=== PATIENT | female | born 1975 | race Hispanic/Latino ===

== ENCOUNTER 2017-02-02 18:48 | Emergency (ER) | payer BC ==
[2017-02-02 19:01] VITALS: TEMP 98.1
--- NOTE | 2017-02-02 20:14 | C.PDOC ---
History Of Present Illness A 41 y/o M c/o pain and swelling to the right inner thigh for 3 day. Pain is worse now, which prompted her visit today. Patient has a phx of similar symptoms at other sites. Denies fever, chills, drainage, rash, or any other complaints. Time Seen by Provider: 02/02/17 19:19 Chief Complaint (Nursing): Abnormal Skin Integrity History Per: Patient History/Exam Limitations: no limitations Onset/Duration Of Symptoms: Days (3) Current Symptoms Are (Timing): Still Present Location Of Injury: Right: Thigh (Inner) Quality Of Symptoms: Painful, Swollen Severity: Mild Recent travel outside of the [place]: No Additional History Per: Patient Past Medical History Reviewed: Historical Data, Nursing Documentation, Vital Signs Vital Signs: Last Vital Signs Temp 98.1 F 02/02/17 18:57 Pulse 78 02/02/17 20:37 Resp 16 02/02/17 20:37 BP 120/78 02/02/17 20:37 Pulse Ox 98 02/02/17 20:37 Family History: States: Unknown Family Hx - Social History Hx Alcohol Use: No Hx Substance Use: No - Immunization History Hx Influenza Vaccination: Yes Review Of Systems Except As Marked, All Systems Reviewed And Found Negative. Constitutional: Negative for: Fever, Chills Skin: Positive for: Other (Pain and swelling to the right inner thigh. No Drainage). Negative for: Rash Physical Exam - Physical Exam Appears: Well, Non-toxic, No Acute Distress Skin: Warm, Dry, No Rash, Other (3x4cm area of flucuant mass with localized induration and erythema. No streaking.) Head: Atraumatic, Normacephalic Neurological/Psych: Oriented x3, Normal Speech, Normal Cognition ED Course And Treatment O2 Sat by Pulse Oximetry: 99 (RA) Pulse Ox Interpretation: Normal Progress Note: Impression: A 41 y/o M c/o pain and swelling to the right inner thigh for 3 day. Plans: Keflex, Bactrim, I&D, Reassess. Patient is in no acute distress and is afebrile. Pain to the inner thigh has improved. Patient is instructed to return if symptoms worsens. - Incision & Drainage Of Abscess Anesthesia: Lidocaine 1%, With Epi Prep Used: Betadine Procedure: Incised W/Scalpel Blade#: (15 guage blade), Drained Pus, Irrigated Cavity W/Saline, Probed To Break Up Loculations, Packed W/Gauze (Patient tolerated procedure well) Disposition Counseled Patient/Family Regarding: Diagnosis, Need For Followup, Rx Given - Disposition Referrals: [facility] [Outside] Disposition: HOME/ ROUTINE Disposition Time: 20:10 Condition: STABLE Additional Instructions: Please keep wound dry for 2 days Take meds as directed In 2 days may remove packing and then continue to apply warm compress Return to ER if worse Prescriptions: Cephalexin [cephalexin] 1,000 mg PO BID #28 cap Sulfamethoxazole/Trimethoprim [Bactrim DS 800 mg-160 mg] 1 tab PO BID #14 tab Instructions: Abscess (ED) Forms: Rezzcard (Albanian) - Clinical Impression Clinical Impression: Abscess of right thigh - Scribe Statement The provider has reviewed the documentation as recorded by the Scribe Mamta moyer All medical record entries made by the Britanyibe were at my direction and personally dictated by me. I have reviewed the chart and agree that the record accurately reflects my personal performance of the history, physical exam, medical decision making, and the department course for this patient. I have also personally directed, reviewed, and agree with the discharge instructions and disposition.
[2017-02-02] MEDS ORDERED: Tmp-Smz 800 mg-160 mg DS Tab PO STA (20:20)
[2017-02-02] MEDS ORDERED: Tmp-Smz 800 mg-160 mg DS Tab ONE (20:24)
[2017-02-02 20:38] VITALS: BP 120/78; PULSE 78; RESP 16
[2017-02-02 20:51] VITALS: O2SAT 99
== END 2017-02-02 20:37 | disposition home or self-care (01) ==
LOC: C.ER 18:48
DX: L02.415 Cutaneous abscess of right lower limb (principal)